=== PATIENT | female | born 1950 | race Caucasian/White ===

== ENCOUNTER 2024-01-02 09:51 | Day surgery (SDC) | payer MEDICARE, BC ==
[~2024-01-02] VITALS: Ht 162.6 cm; Wt 52.2 kg
[~2024-01-02 09:51] MED LIST: CENT1TAB PO; KP F1200 PO; MIDAZOLAM INJ 2MG/2ML VIAL As Ordered ONE; PHENYLEPHRINE 10% OPHTH SOL 5ML OS PRN; VITA100093 PO; fentaNYL 100 MCG/2 ML INJECTION As Ordered ONE
[2024-01-02] MEDS: LIDOCAINE 3.5 % 1ML OPHTH TOPICAL GEL OU ONE (10:14)
[2024-01-02] MEDS: OFLOXACIN 0.3 % (OCUFLOX) OPTH SOL 5ML OS ONE (10:14)
[2024-01-02] MEDS: TROPICAMIDE 1% OPHTH SOLN 15ML OS SCH (10:14)
[2024-01-02] MEDS: ATROPINE SULFATE 1% OPHTH SOLN 2ML BTL OS SCH (10:14)
[2024-01-02] MEDS: PHENYLEPHRINE 2.5% OPHTH SOL 2ML OS SCH (10:14)
[2024-01-02] MEDS: BSS IRRIG/VANCO(10MG)/TOBRA(5MG)/EPINEPH(1:1000-0.5CC)500ML BAG-ORONLY As Ordered ONE (10:39)
[2024-01-02] MEDS: CEFUROXIME 1MG/0.1ML INTRACAMERAL INJ As Ordered ONE (10:40)
[2024-01-02] MEDS: LIDOCAINE 1% SDV 5ML VIAL As Ordered ONE (10:40)
[2024-01-02 11:00] VITALS: BP 135/63; TEMP 97; O2SAT 99
== END 2024-01-02 11:18 | disposition home or self-care (01) ==
LOC: M SDC 09:51
PROVIDERS: ATTEND Ophthalmology
DX: H25.9 Unspecified age-related cataract (principal); H40.1111 Primary open-angle glaucoma, right eye, mild stage
CPT/HCPCS: 66991; 92015; C1783; J0697; J2250; J3010; V2788

== ENCOUNTER 2024-03-05 09:54 | Day surgery (SDC) | payer MEDICARE, BC ==
[~2024-03-05] VITALS: Ht 162.6 cm; Wt 50.8 kg
[~2024-03-05 09:54] MED LIST changes: -MIDAZOLAM INJ 2MG/2ML VIAL As Ordered ONE; +PHENYLEPHRINE 10% OPHTH SOL 5ML OD PRN; -PHENYLEPHRINE 10% OPHTH SOL 5ML OS PRN; -fentaNYL 100 MCG/2 ML INJECTION As Ordered ONE
[2024-03-05] MEDS ORDERED: MIDAZOLAM INJ 2MG/2ML VIAL As Ordered ONE (11:00)
[2024-03-05] MEDS: LIDOCAINE 3.5 % 1ML OPHTH TOPICAL GEL OU ONE (11:00)
[2024-03-05] MEDS: OFLOXACIN 0.3 % (OCUFLOX) OPTH SOL 5ML OD ONE (11:00)
[2024-03-05] MEDS ORDERED: fentaNYL 100 MCG/2 ML INJECTION As Ordered ONE (11:01)
[2024-03-05] MEDS: TROPICAMIDE 1% OPHTH SOLN 15ML OD SCH (11:19)
[2024-03-05] MEDS: PHENYLEPHRINE 2.5% OPHTH SOL 2ML OD SCH (11:19)
[2024-03-05] MEDS: CYCLOPENTOLATE 1% OPHTH SOLN 2ML BTL OD SCH (11:19)
[2024-03-05] MEDS: CEFUROXIME 1MG/0.1ML INTRACAMERAL INJ As Ordered ONE (11:37)
[2024-03-05] MEDS: BSS IRRIG/VANCO(10MG)/TOBRA(5MG)/EPINEPH(1:1000-0.5CC)500ML BAG-ORONLY As Ordered ONE (11:37)
[2024-03-05] MEDS: LIDOCAINE 1% SDV 5ML VIAL As Ordered ONE (11:53)
[2024-03-05] MEDS ORDERED: ACETAMINOPHEN 1000MG/100ML IV BAG As Ordered ONE (12:09)
[2024-03-05 12:20] VITALS: BP 159/77; TEMP 97.4; O2SAT 98
== END 2024-03-05 12:46 | disposition home or self-care (01) ==
LOC: M SDC 09:54
PROVIDERS: ATTEND Ophthalmology
DX: H40.1121 Primary open-angle glaucoma, left eye, mild stage (principal); H25.11 Age-related nuclear cataract, right eye; Z98.42 Cataract extraction status, left eye; Z90.710 Acquired absence of both cervix and uterus; G47.00 Insomnia, unspecified
CPT/HCPCS: 66991; C1783; J0131; J0697; J2250; J3010; V2788